=== PATIENT | female | born 1960 | race Caucasian/White ===

== ENCOUNTER 2020-05-02 08:51 | Day surgery (SDC) | payer MEDICARE ==
--- NOTE | 2020-05-02 09:38 | US ---
Ultrasound-guided liver biopsy DATE OF EXAM: 05/02/2020 CLINICAL HISTORY: Abnormal PET scan The patient presented to the radiology department with low oxygen saturation and difficulty breathing . The patient was taken to the emergency room for further evaluation. Patient deferred the procedure. IMPRESSION: 1. Discontinued ultrasound guided liver biopsy.
== END 2020-05-02 09:50 | disposition home or self-care (01) ==
LOC: RADPROMAIN 08:51
PROVIDERS: ATTEND Thoracic Surgery (Cardiothoracic Vascular Surgery)
DX: K76.89 Other specified diseases of liver (principal); Z53.8 Procedure and treatment not carried out for other reasons
CPT/HCPCS: 76705

== ENCOUNTER 2020-05-02 09:46 | Inpatient (IN) | payer MEDICARE ==
[2020-05-02] MEDS ORDERED: IPRATROPIUM 0.5 MG/2.5 ML NEBU INHALATION STA (10:21)
[2020-05-02] MEDS ORDERED: ALBUTEROL NEBULIZED 2.5 MG/3 ML INHALATION STA (10:21)
--- NOTE | 2020-05-02 10:25 | ED ---
General Adult HPI - General Chief complaint: Weakness Stated complaint: SOB Time Seen by Provider: 05/02/20 09:55 Source: patient, RN notes reviewed, old records reviewed Limitations: no limitations - History of Present Illness Initial comments: This is a 60-year-old female presents emergency department stating that she has a history of recently diagnosed lung cancer with metastatic disease to the liver. Patient states she also has COPD. Patient states she came in today bec ause she was post have a liver biopsy done when she got there she was oxygenating in the low 80s so they sent to the emergency department. Patient states she didn't really note that she was hypoxic today but she did feel weaker in general. Patient denies any lightheadedness dizziness or near syncopal episode. Patient denies any headache patient with any numbness weakness. Patient denies any chest pain or palpitations. Patient denies any abdominal pain. Patient denies any nausea vomiting diarrhea. Patient states she's had swelling in her legs is no worse today than it has been. - Related Data Home Medications Medication Instructions Recorded Confirmed Albuterol Inhaler [Ventolin Hfa 1 puff INHALATION RT-TID 04/25/20 05/02/20 Inhaler] Aspirin [Adult Low Dose Aspirin EC] 81 mg PO HS 04/25/20 05/02/20 Cholecalciferol [Vitamin D3 (25 1,000 unit PO DAILY 04/25/20 05/02/20 Mcg = 1000 Iu)] Omeprazole 20 mg PO BID 04/25/20 05/02/20 Pioglitazone [Actos] 30 mg PO DAILY 04/25/20 05/02/20 Potassium Gluconate 99 mg PO DAILY 04/25/20 05/02/20 Simvastatin [Zocor] 20 mg PO HS 04/25/20 05/02/20 Vitamin B Complex/Folic Acid 0.4 mg PO DAILY 04/25/20 05/02/20 [Vitamin B Complex Tablet] glipiZIDE XL [Glucotrol XL] 10 mg PO DAILY 04/25/20 05/02/20 metFORMIN HCL 1,000 mg PO BID 04/25/20 05/02/20 Albuterol Nebulized [Ventolin 2.5 mg INHALATION RT-QID 05/02/20 05/02/20 Nebulized] Enalapril [Vasotec] 10 mg PO BID 05/02/20 05/02/20 Fluticasone Nasal [place] [Flonase 1 spr EA NOSTRIL DAILY PRN 05/02/20 05/02/20 Nasal [place]] Meloxicam [Mobic] 15 mg PO DAILY 05/02/20 05/02/20 hydroCHLOROthiazide 25 mg PO DAILY 05/02/20 05/02/20 Allergies Allergy/AdvReac Type Severity Reaction Status Date / Time codeine Allergy Rash/Hives Verified 05/02/20 10:20 Iodine and Iodide Containing Allergy Rash/Hives Verified 05/02/20 10:20 Produc shellfish derived [Shellfish] Allergy Rash/Hives Verified 05/02/20 10:20 Review of Systems ROS Statement: Those systems with pertinent positive or pertinent negative responses have been documented in the HPI. ROS Other: All systems not noted in ROS Statement are negative. Past Medical History Past Medical History: Cancer, COPD, Diabetes Mellitus, GERD/Reflux, Hyperlipidemia, Hypertension Additional Past Medical History / Comment(s): back pain, Liver CA History of Any Multi-Drug Resistant Organisms: None Reported Past Surgical History: Adenoidectomy, Cholecystectomy, Joint Replacement, Orthopedic Surgery, Tonsillectomy Additional Past Surgical History / Comment(s): cyst removal in navel area Past Anesthesia/Blood Transfusion Reactions: Postoperative Nausea & Vomiting (PONV) Past Psychological History: No Psychological Hx Reported Smoking Status: Former smoker Past Alcohol Use History: Rare Past Drug Use History: None Reported - Past Family History Mother Brother(s) Additional Family Medical History / Comment(s): parkinson General Exam - General Exam Comments Initial Comments: GENERAL: Patient is well-developed and well-nourished. Patient is nontoxic and well-hydrated and is in mild distress. ENT: Neck is soft and supple. No significant lymphadenopathy is noted. Oropharynx is clear. Moist mucous membranes. Neck has full range of motion without eliciting any pain. EYES: The sclera were anicteric and conjunctiva were pink and moist. Extraocular movements were intact and pupils were equal round and reactive to light. Eyelids were unremarkable. PULMONARY: Patient has diminished lung sounds throughout. I removed the oxygen from the patient which she normally is not on and she desatted down to 80% on room air CARDIOVASCULAR: There is a regular rate and rhythm without any murmurs gallops or rubs. ABDOMEN: Soft and nontender with normal bowel sounds. SKIN: Skin is clear with no lesions or rashes and otherwise unremarkable. NEUROLOGIC: Patient is alert and oriented x3. Cranial nerves II through XII are grossly intact. Motor and sensory are also intact. Normal speech, volume and content. Symmetrical smile. MUSCULOSKELETAL: Normal extremities with adequate strength and full range of motion. Patient's 2+ edema bilaterally LYMPHATICS: No significant lymphadenopathy is noted PSYCHIATRIC: Normal psychiatric evaluation. Limitations: no limitations Course Vital Signs 05/02/20 05/02/20 05/02/20 09:51 09:56 10:52 Temperature 99.3 F Pulse Rate 85 86 Respiratory 18 18 Rate Blood Pressure 137/65 O2 Sat by Pulse 91 L Oximetry 05/02/20 05/02/20 11:11 12:21 Temperature Pulse Rate 88 92 Respiratory 18 Rate Blood Pressure 148/69 O2 Sat by Pulse 92 L Oximetry Medical Decision Making - Medical Decision Making EKG shows normal sinus rhythm at 84 bpm PA interval 262 QRS is 72 QT interval 360 QTC is 452. Patient's EKG shows no ST segment elevation or depression. Chest x-ray shows pulmonary edema Patient received a breathing treatment in the emergency department though she felt better she got up to ambulate her pulse ox dropped to the low 80s. Patient received more breathing treatments in the emergency department as well as steroids. [facility] spoke with [facility] hospitalist and admitted the patient for pulmonary edema and COPD I wrote admitting orders and continue the albuterol and Lasix on the floor - Lab Data Result diagrams: 05/02/20 10:24 05/02/20 10:24 Lab Results 05/02/20 05/02/20 05/02/20 Range/Units 10:24 10:24 10:24 WBC 9.9 (3.8-10.6) k/uL RBC 4.96 (3.80-5.40) m/uL Hgb 12.6 (11.4-16.0) gm/dL Hct 40.1 (34.0-46.0) % MCV 80.8 (80.0-100.0) fL MCH 25.5 (25.0-35.0) pg MCHC 31.5 (31.0-37.0) g/dL RDW 17.1 H (11.5-15.5) % Plt Count 176 (150-450) k/uL MPV 8.0 Neutrophils % 81 % Lymphocytes % 10 % Monocytes % 6 % Eosinophils % 1 % Basophils % 1 % Neutrophils # 8.0 H (1.3-7.7) k/uL Lymphocytes # 1.0 (1.0-4.8) k/uL Monocytes # 0.6 (0-1.0) k/uL Eosinophils # 0.1 (0-0.7) k/uL Basophils # 0.1 (0-0.2) k/uL Hypochromasia Marked Anisocytosis Slight Microcytosis Slight PT 10.3 (9.0-12.0) sec INR 1.0 (<1.2) APTT 23.7 (22.0-30.0) sec D-Dimer 0.60 H (<0.60) mg/L FEU Sodium 132 L (137-145) mmol/L Potassium 4.6 (3.5-5.1) mmol/L Chloride 92 L (98-107) mmol/L Carbon Dioxide 38 H (22-30) mmol/L Anion Gap 2 mmol/L BUN 13 (7-17) mg/dL Creatinine 0.45 L (0.52-1.04) mg/dL Est GFR (CKD-EPI)AfAm >90 (>60 ml/min/1.73 sqM) Est GFR (CKD-EPI)NonAf >90 (>60 ml/min/1.73 sqM) Glucose 120 H (74-99) mg/dL Plasma Lactic Acid Los (0.7-2.0) mmol/L Calcium 8.8 (8.4-10.2) mg/dL Magnesium 1.9 (1.6-2.3) mg/dL Total Bilirubin 1.1 (0.2-1.3) mg/dL AST 77 H (14-36) U/L ALT 61 H (4-34) U/L Alkaline Phosphatase 181 H (38-126) U/L Troponin I (0.000-0.034) ng/mL NT-Pro-B Natriuret Pep pg/mL Total Protein 5.7 L (6.3-8.2) g/dL Albumin 3.3 L (3.5-5.0) g/dL Urine Color Urine Appearance (Clear) Urine pH (5.0-8.0) Ur Specific [place] (1.001-1.035) Urine Protein (Negative) Urine Glucose (UA) (Negative) Urine Ketones (Negative) Urine Blood (Negative) Urine Nitrite (Negative) Urine Bilirubin (Negative) Urine Urobilinogen (<2.0) mg/dL Ur Leukocyte Esterase (Negative) Urine RBC (0-5) /hpf Urine WBC (0-5) /hpf Ur Squamous Epith Cells (0-4) /hpf Urine Bacteria (None) /hpf Urine Mucus (None) /hpf Coronavirus (PCR) (Not Detectd) 05/02/20 05/02/20 05/02/20 Range/Units 10:24 10:24 10:24 WBC (3.8-10.6) k/uL RBC (3.80-5.40) m/uL Hgb (11.4-16.0) gm/dL Hct (34.0-46.0) % MCV (80.0-100.0) fL MCH (25.0-35.0) pg MCHC (31.0-37.0) g/dL RDW (11.5-15.5) % Plt Count (150-450) k/uL MPV Neutrophils % % Lymphocytes % % Monocytes % % Eosinophils % % Basophils % % Neutrophils # (1.3-7.7) k/uL Lymphocytes # (1.0-4.8) k/uL Monocytes # (0-1.0) k/uL Eosinophils # (0-0.7) k/uL Basophils # (0-0.2) k/uL Hypochromasia Anisocytosis Microcytosis PT (9.0-12.0) sec INR (<1.2) APTT (22.0-30.0) sec D-Dimer (<0.60) mg/L FEU Sodium (137-145) mmol/L Potassium (3.5-5.1) mmol/L Chloride (98-107) mmol/L Carbon Dioxide (22-30) mmol/L Anion Gap mmol/L BUN (7-17) mg/dL Creatinine (0.52-1.04) mg/dL Est GFR (CKD-EPI)AfAm (>60 ml/min/1.73 sqM) Est GFR (CKD-EPI)NonAf (>60 ml/min/1.73 sqM) Glucose (74-99) mg/dL Plasma Lactic Acid Los 0.9 (0.7-2.0) mmol/L Calcium (8.4-10.2) mg/dL Magnesium (1.6-2.3) mg/dL Total Bilirubin (0.2-1.3) mg/dL AST (14-36) U/L ALT (4-34) U/L Alkaline Phosphatase (38-126) U/L Troponin I <0.012 (0.000-0.034) ng/mL NT-Pro-B Natriuret Pep 244 pg/mL Total Protein (6.3-8.2) g/dL Albumin (3.5-5.0) g/dL Urine Color Urine Appearance (Clear) Urine pH (5.0-8.0) Ur Specific [place] (1.001-1.035) Urine Protein (Negative) Urine Glucose (UA) (Negative) Urine Ketones (Negative) Urine Blood (Negative) Urine Nitrite (Negative) Urine Bilirubin (Negative) Urine Urobilinogen (<2.0) mg/dL Ur Leukocyte Esterase (Negative) Urine RBC (0-5) /hpf Urine WBC (0-5) /hpf Ur Squamous Epith Cells (0-4) /hpf Urine Bacteria (None) /hpf Urine Mucus (None) /hpf Coronavirus (PCR) (Not Detectd) 05/02/20 05/02/20 Range/Units 10:51 12:06 WBC (3.8-10.6) k/uL RBC (3.80-5.40) m/uL Hgb (11.4-16.0) gm/dL Hct (34.0-46.0) % MCV (80.0-100.0) fL MCH (25.0-35.0) pg MCHC (31.0-37.0) g/dL RDW (11.5-15.5) % Plt Count (150-450) k/uL MPV Neutrophils % % Lymphocytes % % Monocytes % % Eosinophils % % Basophils % % Neutrophils # (1.3-7.7) k/uL Lymphocytes # (1.0-4.8) k/uL Monocytes # (0-1.0) k/uL Eosinophils # (0-0.7) k/uL Basophils # (0-0.2) k/uL Hypochromasia Anisocytosis Microcytosis PT (9.0-12.0) sec INR (<1.2) APTT (22.0-30.0) sec D-Dimer (<0.60) mg/L FEU Sodium (137-145) mmol/L Potassium (3.5-5.1) mmol/L Chloride (98-107) mmol/L Carbon Dioxide (22-30) mmol/L Anion Gap mmol/L BUN (7-17) mg/dL Creatinine (0.52-1.04) mg/dL Est GFR (CKD-EPI)AfAm (>60 ml/min/1.73 sqM) Est GFR (CKD-EPI)NonAf (>60 ml/min/1.73 sqM) Glucose (74-99) mg/dL Plasma Lactic Acid Los (0.7-2.0) mmol/L Calcium (8.4-10.2) mg/dL Magnesium (1.6-2.3) mg/dL Total Bilirubin (0.2-1.3) mg/dL AST (14-36) U/L ALT (4-34) U/L Alkaline Phosphatase (38-126) U/L Troponin I (0.000-0.034) ng/mL NT-Pro-B Natriuret Pep pg/mL Total Protein (6.3-8.2) g/dL Albumin (3.5-5.0) g/dL Urine Color Yellow Urine Appearance Cloudy H (Clear) Urine pH 6.0 (5.0-8.0) Ur Specific [place] 1.021 (1.001-1.035) Urine Protein Trace H (Negative) Urine Glucose (UA) Negative (Negative) Urine Ketones Negative (Negative) Urine Blood Negative (Negative) Urine Nitrite Negative (Negative) Urine Bilirubin Negative (Negative) Urine Urobilinogen 3.0 (<2.0) mg/dL Ur Leukocyte Esterase Trace H (Negative) Urine RBC 1 (0-5) /hpf Urine WBC 1 (0-5) /hpf Ur Squamous Epith Cells 4 (0-4) /hpf Urine Bacteria Rare H (None) /hpf Urine Mucus Rare H (None) /hpf Coronavirus (PCR) Not Detected (Not Detectd) Critical Care Time Critical Care Time: Yes Total Critical Care Time: 35 Disposition Clinical Impression: Pulmonary edema, COPD exacerbation Disposition: ADMITTED IP TO THIS HOSP Referrals: Rebecca Birmingham MD [Primary Care Provider] - 1-2 days Time of Disposition: 13:48
[2020-05-02 10:52] LABS: Anisocytosis Slight; Basophils # (A) 0.1 k/uL (0-0.2); Basophils % (A) 1 %; Eosinophils # (A) 0.1 k/uL (0-0.7); Eosinophils % (A) 1 %; HCT 40.1 % (34.0-46.0); HGB 12.6 gm/dL (11.4-16.0); Hypochromasia Marked; Lymphocytes % (A) 10 %; MCH 25.5 pg (25.0-35.0); MCHC 31.5 g/dL (31.0-37.0); MCV 80.8 fL (80.0-100.0); Microcytosis Slight; Monocytes # (A) 0.6 k/uL (0-1.0); Monocytes % (A) 6 %; Neutrophils % (A) 81 %; Platelet Count 176 k/uL (150-450); RBC 4.96 m/uL (3.80-5.40); RDW 17.1 % (11.5-15.5); WBC 9.9 k/uL (3.8-10.6)
[2020-05-02 11:07] LABS: Chloride 92 mmol/L (98-107)
[2020-05-02 11:10] LABS: ALT 61 U/L (4-34); AST 77 U/L (14-36); African American GFR (CKD) >90 (>60 ml/min/1.73 sqM); Albumin 3.3 g/dL (3.5-5.0); Alkaline Phosphatase 181 U/L (38-126); Blood Urea Nitrogen 13 mg/dL (7-17); Calcium 8.8 mg/dL (8.4-10.2); Glucose 120 mg/dL (74-99); Magnesium 1.9 mg/dL (1.6-2.3); Non-African American GFR(CKD) >90 (>60 ml/min/1.73 sqM); Potassium 4.6 mmol/L (3.5-5.1); Sodium 132 mmol/L (137-145); Total Bilirubin 1.1 mg/dL (0.2-1.3); Total Protein 5.7 g/dL (6.3-8.2)
[2020-05-02 11:14] LABS: Partial Thromboplastin Time 23.7 sec (22.0-30.0); Prothrombin Time 10.3 sec (9.0-12.0)
[2020-05-02 11:16] LABS: Anion Gap 2 mmol/L
[2020-05-02 11:23] LABS: Carbon Dioxide 38 mmol/L (22-30)
--- NOTE | 2020-05-02 11:32 | XR ---
EXAMINATION TYPE: XR chest 2V DATE OF EXAM: 05/02/2020 COMPARISON: 07/09/[address] 04/22/2020 HISTORY: 60 year-old female shortness of breath, difficulty breathing, stage IV lung cancer. TECHNIQUE: PA and lateral views FINDINGS: Heart borderline enlarged. Diffuse interstitial/vascular prominence along with trace effusions and mi ld patchy lower lung densities. 3.3 cm mass left midlung. IMPRESSION: 1. Borderline cardiomegaly with interstitial/vascular prominence and trace pleural effusions. Correla te for mild CHF. 2. Known 3.3 cm mass in the left midlung correlating to the abnormality on recent outside PET/CT.
[2020-05-02 11:37] LABS: D-Dimer 0.6 mg/L FEU (<0.60)
[2020-05-02 12:40] LABS: Appearance,Urine Cloudy (Clear); Bacteria,Urine Rare /hpf; Bilirubin,Urine Negative (Negative); Blood,Urine Negative (Negative); Color,Urine Yellow; Glucose,Urine (UA) Negative (Negative); Ketones,Urine Negative (Negative); Leukocyte Esterase,Urine Trace (Negative); Mucus,Urine Rare /hpf; Nitrite,Urine Negative (Negative); Protein,Urine Trace (Negative); RBC,Urine 1 /hpf (0-5); Specific Gravity,Urine 1.021 (1.001-1.035); Squamous Epithelial Cell,Urine 4 /hpf (0-4); WBC,Urine 1 /hpf (0-5)
[2020-05-02] MEDS ORDERED: methylPREDNISolone SOD SUCCI 125 MG/2 ML VIAL IV STA (13:05)
[2020-05-02] MEDS ORDERED: FUROSEMIDE 10 MG/ML 2 ML VIAL IV ONE (13:49)
[2020-05-02] MEDS ORDERED: methylPREDNISolone SOD SUCCI 40 MG/ML 1 ML VIAL IV SCH (16:00)
[2020-05-02] MEDS ORDERED: FUROSEMIDE 10 MG/ML 2 ML VIAL IV SCH (16:00)
--- NOTE | 2020-05-02 16:07 | P.HPIM ---
History of Present Illness This is a pleasant 60-year-old female came in because she was found to be hypoxic while getting a biopsy of the liver. Patient was wheezing on admission improved with steroids and inhalational treatments patient is diminished on exa mination the patient. Patient was having bilateral pedal edema is as per the patient pedal edema started yesterday denied any orthopnea or paroxysmal nocturnal dyspnea. Patient BNP is only 200 I'm unable to clearly appreciate the JVD . Patient is bit hyponatremic as well. Patient was recently diagnosed with lung cancer but this was not biopsy-proven yet. Patient also has metastatic disease to the liver. Patient denied any significant cough or doesn't have any fevers or chills. Chest x-ray showed interstitial vascular prominence. Review of Systems REVIEW OF SYSTEMS: CONSTITUTIONAL: No fever, no malaise, no fatigue. HEENT: No recent visual problems or hearing problems. Denied any sore throat. CARDIOVASCULAR: No chest pain, orthopnea, PND, no palpitations, no syncope. PULMONARY: no hemoptysis. GASTROINTESTINAL: No diarrhea, no nausea, no vomiting, no abdominal pain. NEUROLOGICAL: No headaches, no weakness, no numbness. HEMATOLOGICAL: Denies any bleeding or petechiae. GENITOURINARY: Denies any burning micturition, frequency, or urgency. MUSCULOSKELETAL/RHEUMATOLOGICAL: Denies any joint pain, swelling, or any muscle pain. ENDOCRINE: Denies any polyuria or polydipsia. The rest of the 14-point review of systems is negative. Past Medical History Past Medical History: Cancer, COPD, Diabetes Mellitus, GERD/Reflux, Hyperlipidemia, Hypertension Additional Past Medical History / Comment(s): back pain, Liver CA History of Any Multi-Drug Resistant Organisms: None Reported Past Surgical History: Adenoidectomy, Cholecystectomy, Joint Replacement, Orthopedic Surgery, Tonsillectomy Additional Past Surgical History / Comment(s): cyst removal in navel area Past Anesthesia/Blood Transfusion Reactions: Postoperative Nausea & Vomiting (PONV) Past Psychological History: No Psychological Hx Reported Smoking Status: Former smoker Past Alcohol Use History: Rare Past Drug Use History: None Reported - Past Family History Mother Brother(s) Additional Family Medical History / Comment(s): parkinson Medications and Allergies Home Medications Medication Instructions Recorded Confirmed Type Albuterol Inhaler [Ventolin Hfa 1 puff INHALATION RT-TID 04/25/20 05/02/20 History Inhaler] Aspirin [Adult Low Dose Aspirin EC] 81 mg PO HS 04/25/20 05/02/20 History Cholecalciferol [Vitamin D3 (25 1,000 unit PO DAILY 04/25/20 05/02/20 History Mcg = 1000 Iu)] Omeprazole 20 mg PO BID 04/25/20 05/02/20 History Pioglitazone [Actos] 30 mg PO DAILY 04/25/20 05/02/20 History Potassium Gluconate 99 mg PO DAILY 04/25/20 05/02/20 History Simvastatin [Zocor] 20 mg PO HS 04/25/20 05/02/20 History Vitamin B Complex/Folic Acid 0.4 mg PO DAILY 04/25/20 05/02/20 History [Vitamin B Complex Tablet] glipiZIDE XL [Glucotrol XL] 10 mg PO DAILY 04/25/20 05/02/20 History metFORMIN HCL 1,000 mg PO BID 04/25/20 05/02/20 History Albuterol Nebulized [Ventolin 2.5 mg INHALATION RT-QID 05/02/20 05/02/20 History Nebulized] Enalapril [Vasotec] 10 mg PO BID 05/02/20 05/02/20 History Fluticasone Nasal [place] [Flonase 1 spr EA NOSTRIL DAILY PRN 05/02/20 05/02/20 History Nasal [place]] Meloxicam [Mobic] 15 mg PO DAILY 05/02/20 05/02/20 History hydroCHLOROthiazide 25 mg PO DAILY 05/02/20 05/02/20 History Allergies Allergy/AdvReac Type Severity Reaction Status Date / Time codeine Allergy Rash/Hives Verified 05/02/20 10:20 Iodine and Iodide Containing Allergy Rash/Hives Verified 05/02/20 10:20 Produc shellfish derived [Shellfish] Allergy Rash/Hives Verified 05/02/20 10:20 Physical Exam Vitals: Vital Signs Temp Pulse Resp BP Pulse Ox 05/02/20 12:21 92 18 148/69 92 L 05/02/20 11:11 88 05/02/20 10:52 86 05/02/20 09:56 18 05/02/20 09:51 99.3 F 85 18 137/65 91 L Intake and Output 05/02/20 05/02/20 05/02/20 06:59 14:59 22:59 Other: Weight 149.685 kg PHYSICAL EXAMINATION: GENERAL: The patient is alert and oriented x3, not in any acute distress. Obese HEENT: Pupils are round and equally reacting to light. EOMI. No scleral icterus. No conjunctival pallor. Normocephalic, atraumatic. No pharyngeal erythema. No thyromegaly. CARDIOVASCULAR: S1 and S2 present. No murmurs, rubs, or gallops. PULMONARY: Chest is clear to auscultation, no wheezing or crackles. Minimally diminished air entry into bilateral lung [place]. ABDOMEN: Soft, nontender, nondistended, normoactive bowel sounds. No palpable organomegaly. MUSCULOSKELETAL: No joint swelling or deformity. EXTREMITIES: No cyanosis, clubbing, or pedal edema. NEUROLOGICAL: Gross neurological examination did not reveal any focal deficits. SKIN: No rashes. Results CBC & Chem 7: 05/02/20 10:24 05/02/20 10:24 Labs: Abnormal Lab Results - Last 24 Hours (Table) 05/02/20 05/02/20 05/02/20 Range/Units 10:24 10:24 10:24 RDW 17.1 H (11.5-15.5) % Neutrophils # 8.0 H (1.3-7.7) k/uL D-Dimer 0.60 H (<0.60) mg/L FEU Sodium 132 L (137-145) mmol/L Chloride 92 L (98-107) mmol/L Carbon Dioxide 38 H (22-30) mmol/L Creatinine 0.45 L (0.52-1.04) mg/dL Glucose 120 H (74-99) mg/dL AST 77 H (14-36) U/L ALT 61 H (4-34) U/L Alkaline Phosphatase 181 H (38-126) U/L Total Protein 5.7 L (6.3-8.2) g/dL Albumin 3.3 L (3.5-5.0) g/dL Urine Appearance (Clear) Urine Protein (Negative) Ur Leukocyte Esterase (Negative) Urine Bacteria (None) /hpf Urine Mucus (None) /hpf 05/02/20 Range/Units 12:06 RDW (11.5-15.5) % Neutrophils # (1.3-7.7) k/uL D-Dimer (<0.60) mg/L FEU Sodium (137-145) mmol/L Chloride (98-107) mmol/L Carbon Dioxide (22-30) mmol/L Creatinine (0.52-1.04) mg/dL Glucose (74-99) mg/dL AST (14-36) U/L ALT (4-34) U/L Alkaline Phosphatase (38-126) U/L Total Protein (6.3-8.2) g/dL Albumin (3.5-5.0) g/dL Urine Appearance Cloudy H (Clear) Urine Protein Trace H (Negative) Ur Leukocyte Esterase Trace H (Negative) Urine Bacteria Rare H (None) /hpf Urine Mucus Rare H (None) /hpf Assessment and Plan Plan: Shortness of breath: Mostly COPD exacerbation and shortness of breath significantly improved patient will be switched to oral steroids patient is diabetic I am expecting her blood sugars to go up because of the IV steroids she is receiving at this time. Continue with inhalational treatments. -Bilateral pedal edema with the possible pulmonary congestion on the chest x-ray I'll obtain an echocardiogram . Because of the pedal edema and continue with IV Lasix for now. -Hyponatremia: Hypervolemic hyponatremia with a possible competent of SIADH from a lung cancer -Lung cancer will need biopsy -Hypertension -hyperlipidemia -Nicotine abuse: Counseling was provided quit smoking 4 days ago and used to smoke 3 packs per day. Type 2 diabetes mellitus: Blood sugars are expected to go because of systemic steroids DVT prophylaxis with Lovenox
[2020-05-02] MEDS ORDERED: methylPREDNISolone SOD SUCCI 125 MG/2 ML VIAL IV SCH (18:00)
[2020-05-02 19:08] LABS: Glucose,Whole Blood 338 mg/dL (75-99)
[2020-05-02] MEDS: INSULIN ASPART (NovoLOG) 100 UNIT/ML VIAL SQ SCH ×2 (19:10→21:28)
[2020-05-02] MEDS ORDERED: FUROSEMIDE 10 MG/ML 4 ML VIAL IV SCH (21:00)
[2020-05-02] MEDS ORDERED: ASPIRIN 81 MG PO SCH (21:00)
[2020-05-02] MEDS: metFORMIN 500 MG TAB PO SCH (21:07)
[2020-05-02] MEDS: ATORVASTATIN 10 MG TAB PO SCH (21:07)
[2020-05-03 06:54] LABS: Anisocytosis Slight; HCT 40.5 % (34.0-46.0); HGB 12.7 gm/dL (11.4-16.0); Hypochromasia Marked; MCH 25.4 pg (25.0-35.0); MCHC 31.3 g/dL (31.0-37.0); MCV 81.1 fL (80.0-100.0); Mean Platelet Volume 7.7; Platelet Count 189 k/uL (150-450); RBC 4.99 m/uL (3.80-5.40); RDW 16.9 % (11.5-15.5); WBC 11.6 k/uL (3.8-10.6)
[2020-05-03 07:01] LABS: Glucose,Whole Blood 91 mg/dL (75-99)
[2020-05-03] MEDS: IPRATROPIUM-ALBUTEROL 3 ML NEB INHALATION PRN ×2 (07:50→16:58)
[2020-05-03] MEDS: metFORMIN 500 MG TAB PO SCH ×2 (08:05→20:43)
[2020-05-03] MEDS: PIOGLITAZONE 30 MG TAB PO SCH (08:05)
[2020-05-03] MEDS: glipiZIDE 5 MG TAB PO SCH ×2 (08:05→20:53)
[2020-05-03] MEDS: FUROSEMIDE 10 MG/ML 4 ML VIAL IV SCH ×2 (08:05→16:13)
[2020-05-03] MEDS: INSULIN ASPART (NovoLOG) 100 UNIT/ML VIAL SQ SCH ×4 (08:06→20:43)
[2020-05-03] MEDS: lisinopriL 20 MG TAB PO SCH (08:06)
[2020-05-03] MEDS: PANTOPRAZOLE 40 MG TABLET PO SCH (08:06)
[2020-05-03] MEDS: MELOXICAM 7.5 MG TAB PO SCH (08:07)
[2020-05-03] MEDS ORDERED: predniSONE 20 MG TAB PO SCH (09:00)
[2020-05-03] MEDS ORDERED: ENOXAPARIN 40 MG/0.4 ML SYRINGE SQ SCH (09:00)
[2020-05-03 09:58] LABS: African American GFR (CKD) 120.2 (60.0-200.0); Anion Gap 4.5 mmol/L (4.00-12.00); Calcium 9.3 mg/dL (8.7-10.3); Carbon Dioxide 39.5 mmol/L (21.6-31.8); Non-African American GFR(CKD) 103.7 (60.0-200.0); Potassium 3.9 mmol/L (3.5-5.5)
--- NOTE | 2020-05-03 10:15 | P.PN ---
Subjective 60-year-old female came in because she was found to be hypoxic while getting a biopsy of the liver. Patient was wheezing on admission improved with steroids and inhalational treatments patient is diminished on examination the patient. Patient was having bilateral pedal edema is as per the patient pedal edema started yesterday denied any orthopnea or paroxysmal nocturnal dyspnea. Patient BNP is only 200 I'm unable to clearly appreciate the JVD . Patient is bit hyponatremic as well. Patient was recently diagnosed with lung cancer but this was not biopsy-proven yet. Patient also has metastatic disease to the liver. Patient denied any significant cough or doesn't have any fevers or chills. Chest x-ray showed interstitial vascular prominence. 05/03 2020 Patient is feeling much better today. Patient has significant urine output. Hy ponatremia improved. Patient regarding on IV Lasix .echocardiac exam is pending. Constitutional: Denied any fatigue denied any fever. Cardio vascular: denied any chest pain, palpitations Gastrointestinal denied any nausea vomiting Pulmonary: Shortness of breath improved Neurologic denied any new focal deficits All inpatient medications were reviewed and appropriate changes in these medications as dictated in the interval history and assessment and plan. Objective - Vital Signs Vital signs: Vital Signs Temp 97.8 F 05/03/20 05:00 Pulse 72 05/03/20 08:02 Resp 20 05/03/20 05:00 BP 152/81 05/03/20 05:00 Pulse Ox 90 L 05/03/20 05:00 Intake & Output 05/02/20 05/03/20 05/03/20 18:59 06:59 18:59 Intake Total 710 Balance 710 Weight 149.685 kg Intake: Oral 710 Other: # Voids 3 - Exam PHYSICAL EXAMINATION: GENERAL: The patient is alert and oriented x3, not in any acute distress. Obese HEENT: Pupils are round and equally reacting to light. EOMI. No scleral icterus. No conjunctival pallor. Normocephalic, atraumatic. No pharyngeal erythema. No thyromegaly. CARDIOVASCULAR: S1 and S2 present. No murmurs, rubs, or gallops. PULMONARY: Chest is clear to auscultation, no wheezing or crackles. Minimally diminished air entry into bilateral lung leonard. ABDOMEN: Soft, nontender, nondistended, normoactive bowel sounds. No palpable organomegaly. MUSCULOSKELETAL: No joint swelling or deformity. EXTREMITIES: No cyanosis, clubbing, does have significant bilateral pedal edema which improved compared to yesterday NEUROLOGICAL: Gross neurological examination did not reveal any focal deficits. SKIN: No rashes. - Labs CBC & Chem 7: 05/03/20 06:37 05/03/20 06:37 Labs: Abnormal Lab Results - Last 24 Hours (Table) 05/02/20 05/02/20 05/02/20 Range/Units 10:24 10:24 10:24 WBC (3.8-10.6) k/uL RDW 17.1 H (11.5-15.5) % Neutrophils # 8.0 H (1.3-7.7) k/uL D-Dimer 0.60 H (<0.60) mg/L FEU Sodium 132 L (137-145) mmol/L Chloride 92 L (98-107) mmol/L Carbon Dioxide 38 H (22-30) mmol/L Creatinine 0.45 L (0.52-1.04) mg/dL Glucose 120 H (74-99) mg/dL POC Glucose (mg/dL) (75-99) mg/dL AST 77 H (14-36) U/L ALT 61 H (4-34) U/L Alkaline Phosphatase 181 H (38-126) U/L Total Protein 5.7 L (6.3-8.2) g/dL Albumin 3.3 L (3.5-5.0) g/dL Urine Appearance (Clear) Urine Protein (Negative) Ur Leukocyte Esterase (Negative) Urine Bacteria (None) /hpf Urine Mucus (None) /hpf 05/02/20 05/02/20 05/03/20 Range/Units 12:06 19:06 06:37 WBC 11.6 H (3.8-10.6) k/uL RDW 16.9 H (11.5-15.5) % Neutrophils # (1.3-7.7) k/uL D-Dimer (<0.60) mg/L FEU Sodium (137-145) mmol/L Chloride (98-107) mmol/L Carbon Dioxide (22-30) mmol/L Creatinine (0.52-1.04) mg/dL Glucose (74-99) mg/dL POC Glucose (mg/dL) 338 H (75-99) mg/dL AST (14-36) U/L ALT (4-34) U/L Alkaline Phosphatase (38-126) U/L Total Protein (6.3-8.2) g/dL Albumin (3.5-5.0) g/dL Urine Appearance Cloudy H (Clear) Urine Protein Trace H (Negative) Ur Leukocyte Esterase Trace H (Negative) Urine Bacteria Rare H (None) /hpf Urine Mucus Rare H (None) /hpf 05/03/20 Range/Units 06:37 WBC (3.8-10.6) k/uL RDW (11.5-15.5) % Neutrophils # (1.3-7.7) k/uL D-Dimer (<0.60) mg/L FEU Sodium (137-145) mmol/L Chloride 94 L (98-107) mmol/L Carbon Dioxide 39.5 H (22-30) mmol/L Creatinine 0.5 L (0.52-1.04) mg/dL Glucose (74-99) mg/dL POC Glucose (mg/dL) (75-99) mg/dL AST (14-36) U/L ALT (4-34) U/L Alkaline Phosphatase (38-126) U/L Total Protein (6.3-8.2) g/dL Albumin (3.5-5.0) g/dL Urine Appearance (Clear) Urine Protein (Negative) Ur Leukocyte Esterase (Negative) Urine Bacteria (None) /hpf Urine Mucus (None) /hpf Assessment and Plan Plan: Shortness of breath: Mostly COPD exacerbation and shortness of breath significantly improved and is on oral steroids , blood sugars are highly elevated due to systemic steroids will cut down the steroids to 20 g today. -Bilateral pedal edema with the possible pulmonary congestion on the chest x-ray I'll obtain an echocardiogram . Because of the pedal edema and continue with IV Lasix for now. Patient may have heart failure echocardiogram is pending -Hyponatremia: Hypervolemic hyponatremia , improved with IV Lasix -Lung cancer will need biopsy -Hypertension -hyperlipidemia -Nicotine abuse: Counseling was provided quit smoking 4 days ago and used to smoke 3 packs per day. Type 2 diabetes mellitus: Blood sugars are expected to go because of systemic steroids DVT prophylaxis with Lovenox
[2020-05-03 12:06] LABS: Glucose,Whole Blood 204 mg/dL (75-99)
--- NOTE | 2020-05-03 14:38 | ECHOF ---
Referral Reason:CHF MEASUREMENTS -------- HEIGHT: 167.6 cm WEIGHT: 149.7 kg BP: 152/81 RVIDd: 3.5 cm (< 3.3) IVSd: 1.4 cm (0.6 - 1.1) LVIDd: 3.7 cm (3.9 - 5.3) LVPWd: 1.5 cm (0.6 - 1.1) IVSs: 2.2 cm LVIDs: 2.8 cm LVPWs: 2.1 cm LA Diam: 4.3 cm (2.7 - 3.8) Ao Diam: 3.2 cm (2.0 - 3.7) AV Cusp: 2.3 cm (1.5 - 2.6) MV EXCURSION: 18.351 mm (> 18.000) MV EF SLOPE: 86 mm/s (70 - 150) EPSS: 0.4 cm MV E Eleazar: 1.22 m/s MV DecT: 241 ms MV A Eleazar: 1.15 m/s MV E/A Ratio: 1.07 RAP: 15.00 mmHg RVSP: 57.73 mmHg FINDINGS -------- Sinus rhythm. This was a technically adequate study. The left ventricular size is normal. There is moderate concentric left ventricular hypertrophy. O verall left ventricular systolic function is normal with, an EF between 60 - 65 %. The right ventricle is mildly enlarged. The left atrium is moderately dilated. The right atrium is normal in size. Interatrial and interventricular septum intact. Aortic valve is trileaflet and is mildly thickened. Mild mitral annular calcification present. Mild tricuspid regurgitation present. There is severe pulmonary hypertension. The right ventricul ar systolic pressure, as measured by Doppler, is 57.73mmHg. The pulmonic valve was not well visualized. The aortic root size is normal. The inferior vena cava is dilated with no significant inspiratory collapse which is consistent estima karen right atrial pressure of >15 mmHg. There is no pericardial effusion. CONCLUSIONS -------- 1. The left ventricular size is normal. 2. There is moderate concentric left ventricular hypertrophy. 3. Overall left ventricular systolic function is normal with, an EF between 60 - 65 %. 4. The right ventricle is mildly enlarged. 5. The left atrium is moderately dilated. 6. Aortic valve is trileaflet and is mildly thickened. 7. Mild mitral annular calcification present. 8. Mild tricuspid regurgitation present. 9. There is severe pulmonary hypertension. 10. The right ventricular systolic pressure, as measured by Doppler, is 57.73mmHg. 11. The inferior vena cava is dilated with no significant inspiratory collapse which is consistent es timated right atrial pressure of >15 mmHg. 12. There is no pericardial effusion. INTERNATIONAL STUDENT ADVISOR: María Churchill RDCS
[2020-05-03 17:13] LABS: Glucose,Whole Blood 190 mg/dL (75-99)
[2020-05-03 19:57] LABS: Glucose,Whole Blood 195 mg/dL (75-99)
[2020-05-03] MEDS: ATORVASTATIN 10 MG TAB PO SCH (20:43)
[2020-05-04 06:42] LABS: Glucose,Whole Blood 78 mg/dL (75-99)
[2020-05-04] MEDS: INSULIN ASPART (NovoLOG) 100 UNIT/ML VIAL SQ SCH ×4 (07:04→21:13)
[2020-05-04] MEDS: PIOGLITAZONE 30 MG TAB PO SCH (07:55)
[2020-05-04] MEDS: predniSONE 20 MG TAB PO SCH (07:55)
[2020-05-04] MEDS: PANTOPRAZOLE 40 MG TABLET PO SCH (07:55)
[2020-05-04] MEDS: metFORMIN 500 MG TAB PO SCH ×2 (07:55→21:12)
[2020-05-04] MEDS: FUROSEMIDE 10 MG/ML 4 ML VIAL IV SCH (07:55)
[2020-05-04] MEDS: lisinopriL 20 MG TAB PO SCH (07:55)
[2020-05-04] MEDS: glipiZIDE 5 MG TAB PO SCH (07:55)
[2020-05-04] MEDS: MELOXICAM 7.5 MG TAB PO SCH (07:56)
[2020-05-04] MEDS: IPRATROPIUM-ALBUTEROL 3 ML NEB INHALATION PRN (08:10)
[2020-05-04 10:08] LABS: African American GFR (CKD) 113.2 (60.0-200.0); BUN/Creat Ratio 23.33 Ratio (12.00-20.00); Calcium 9.6 mg/dL (8.7-10.3); Chloride 92 mmol/L (96-109); Glucose 61 mg/dL (70-110); Non-African American GFR(CKD) 97.7 (60.0-200.0); Potassium 3.8 mmol/L (3.5-5.5); Sodium 141 mmol/L (135-145)
--- NOTE | 2020-05-04 10:46 | P.PN ---
Subjective 60-year-old female came in because she was found to be hypoxic while getting a biopsy of the liver. Patient was wheezing on admission improved with steroids and inhalational treatments patient is diminished on examination the patient. Patient was having bilateral pedal edema is as per the patient pedal edema started yesterday denied any orthopnea or paroxysmal nocturnal dyspnea. Patient BNP is only 200 I'm unable to clearly appreciate the JVD . Patient is bit hyponatremic as well. Patient was recently diagnosed with lung cancer but this was not biopsy-proven yet. Patient also has metastatic disease to the liver. Patient denied any significant cough or doesn't have any fevers or chills. Chest x-ray showed interstitial vascular prominence. 05/03 2020 Patient is feeling much better today. Patient has significant urine output. Hy ponatremia improved. Patient regarding on IV Lasix .echocardiac exam is pending. 05/03/2020 Patient is fairly saturating well on room air. Patient has an echo cardiac exam showed normal ejection fraction but may have some right-sided heart failure patient has moderate to severe pulmonary hypertension with RVSP of around 57. And appears to have contraction alkalosis. Patient will remain on Lasix today possibility of switching it to oral tomorrow Constitutional: Denied any fatigue denied any fever. Cardio vascular: denied any chest pain, palpitations Gastrointestinal denied any nausea vomiting Pulmonary: Shortness of breath improved Neurologic denied any new focal deficits All inpatient medications were reviewed and appropriate changes in these medications as dictated in the interval history and assessment and plan. Objective - Vital Signs Vital signs: Vital Signs Temp 98.1 F 05/04/20 05:00 Pulse 76 05/04/20 08:26 Resp 20 05/04/20 05:00 BP 128/70 05/04/20 05:00 Pulse Ox 93 L 05/04/20 05:00 Intake & Output 05/03/20 05/04/20 05/04/20 18:59 06:59 18:59 Intake Total 0 Balance 1770 Intake: Oral 0 Other: # Voids 4 3 - Exam PHYSICAL EXAMINATION: GENERAL: The patient is alert and oriented x3, not in any acute distress. Obese HEENT: Pupils are round and equally reacting to light. EOMI. No scleral icterus. No conjunctival pallor. Normocephalic, atraumatic. No pharyngeal erythema. No thyromegaly. CARDIOVASCULAR: S1 and S2 present. No murmurs, rubs, or gallops. PULMONARY: Chest is clear to auscultation, no wheezing or crackles. Minimally diminished air entry into bilateral lung leonard. ABDOMEN: Soft, nontender, nondistended, normoactive bowel sounds. No palpable organomegaly. MUSCULOSKELETAL: No joint swelling or deformity. EXTREMITIES: No cyanosis, clubbing, does have significant bilateral pedal edema which improved compared to yesterday NEUROLOGICAL: Gross neurological examination did not reveal any focal deficits. SKIN: No rashes. - Labs CBC & Chem 7: 05/03/20 06:37 05/04/20 04:59 Labs: Abnormal Lab Results - Last 24 Hours (Table) 05/03/20 05/03/20 05/03/20 Range/Units 12:04 17:12 19:56 Chloride (96-109) mmol/L Carbon Dioxide (21.6-31.8) mmol/L BUN/Creatinine Ratio (12.00-20.00) Ratio Glucose (70-110) mg/dL POC Glucose (mg/dL) 204 H 190 H 195 H (75-99) mg/dL 05/04/20 Range/Units 04:59 Chloride 92 L (96-109) mmol/L Carbon Dioxide >40.0 H* (21.6-31.8) mmol/L BUN/Creatinine Ratio 23.33 H (12.00-20.00) Ratio Glucose 61 L (70-110) mg/dL POC Glucose (mg/dL) (75-99) mg/dL Microbiology - Last 24 Hours (Table) 05/02/20 10:24 Blood Culture - Preliminary Blood No Growth after 24 hours Assessment and Plan Plan: Shortness of breath: Mostly COPD exacerbation and shortness of breath significantly improved and is on oral steroids , blood sugars are under fairly controlled now -Bilateral pedal edema with the possible pulmonary congestion on the chest x-ray I'll cardio and showed normal ejection fraction but appeared to have possible right-sided heart failure or cor pulmonale patient has pulmonary hypertension. Continue with IV Lasix today. -Alkalosis: Secondary to contraction alkalosis from IV diuretics and the most probably from some CO2 retention -Hyponatremia: Hypervolemic hyponatremia , improved with IV Lasix -Lung cancer will need biopsy -Hypertension -hyperlipidemia -Nicotine abuse: Counseling was provided quit smoking 4 days ago and used to s moke 3 packs per day. Type 2 diabetes mellitus: Blood sugars are expected to go because of systemic steroids DVT prophylaxis with Lovenox
[2020-05-04 11:24] LABS: Glucose,Whole Blood 106 mg/dL (75-99)
[2020-05-04] MEDS: FUROSEMIDE 40 MG TAB PO SCH (16:00)
[2020-05-04 17:17] LABS: Glucose,Whole Blood 130 mg/dL (75-99)
[2020-05-04 20:11] LABS: Glucose,Whole Blood 186 mg/dL (75-99)
[2020-05-04] MEDS: ATORVASTATIN 10 MG TAB PO SCH (21:12)
[2020-05-04 23:57] LABS: Hemoglobin A1C 7.4 % (4.0-6.0)
[2020-05-05 07:05] LABS: Glucose,Whole Blood 103 mg/dL (75-99)
[2020-05-05] MEDS: INSULIN ASPART (NovoLOG) 100 UNIT/ML VIAL SQ SCH ×2 (07:24→11:59)
[2020-05-05] MEDS ORDERED: glipiZIDE 5 MG TAB PO SCH (07:30)
[2020-05-05] MEDS: FUROSEMIDE 40 MG TAB PO SCH ×2 (08:49→16:19)
[2020-05-05] MEDS: MELOXICAM 7.5 MG TAB PO SCH ×2 (08:49→08:55)
[2020-05-05] MEDS: lisinopriL 20 MG TAB PO SCH (08:49)
[2020-05-05] MEDS: predniSONE 20 MG TAB PO SCH (08:49)
[2020-05-05] MEDS: PANTOPRAZOLE 40 MG TABLET PO SCH (08:49)
[2020-05-05] MEDS: metFORMIN 500 MG TAB PO SCH (08:49)
[2020-05-05] MEDS: PIOGLITAZONE 30 MG TAB PO SCH (08:50)
--- NOTE | 2020-05-05 09:43 | US ---
EXAMINATION TYPE: US liver DATE OF EXAM: 05/05/2020 COMPARISON: PET scan 04/22/2020 CLINICAL HISTORY: liver mass. Evaluate liver to see if liver biopsy can be done by ultrasound. EXAM MEASUREMENTS: Liver Length: 20.1 cm Gallbladder Wall: Surgically absent CBD: 0.4 cm Right Kidney: 12.4 x 5.2 x 6.4 cm Gross morbid obesity, technically difficult study, limited visualization. Pancreas: Obscured by bowel gas Liver: Increased attenuation, decreased visualization of vessels, limited right lobe visualization Gallbladder: Surgically absent Evidence for sonographic Walker's sign: no CBD: wnl Right Kidney: limited visualization, measures large IMPRESSION: There appear to be small echogenic nodules within the liver with a heterogeneous pattern to the liver. This likely corresponds to the CT abnormality of hepatic nodules.
[2020-05-05 09:56] LABS: African American GFR (CKD) 107.6 (60.0-200.0); Calcium 9.2 mg/dL (8.7-10.3); Chloride 93 mmol/L (96-109); Glucose 96 mg/dL (70-110); Non-African American GFR(CKD) 92.9 (60.0-200.0); Potassium 3.9 mmol/L (3.5-5.5); Sodium 141 mmol/L (135-145)
[2020-05-05 11:04] LABS: Glucose,Whole Blood 120 mg/dL (75-99)
[2020-05-05 11:47] LABS: Carbon Dioxide >40.0 mmol/L (21.6-31.8)
[2020-05-05 12:07] LABS: Carbon Dioxide >40.0 mmol/L (21.6-31.8)
--- NOTE | 2020-05-05 13:16 | CDI ---
Documentation Clarification Form Date: 05/05/2020 01:15:22 PM From: Suzanne ShawEscalanteSEBASTIEN marquez, CCDS Admit Date: 05/02/2020 01:49:00 PM Patient Name: Tucker Vinson V Visit Number: [id number] Discharge Date: ATTENTION: The Clinical Documentation Specialists (CDI) and [facility] Coding Staff appreciate your assistance in clarifying documentation. Please respond to the clarification below the line at the bottom and electronically sign. The CDI & [facility] Coding staff will review the response and follow-up if needed. Please note: Queries are made part of the Legal Health Record. If you have any questions, please contact the author of this message via ITS. Dr. Danelle Rosales: Per the History & Physical and subsequent Attending Progress Notes: "This is a pleasant 60-year-old female came in because she was found to be hypoxic while getting a biopsy of the liver." History/Risk Factors: Recently diagnosed lung cancer with metastatic disease to the liver, COPD, DM, GERD, Back Pain, Hyperlipidemia, Hypertension, Former smoker. Clinical Indicators: Presented to the ED with weakness and SOB. Patient was scheduled for a liver biopsy when she became hypoxic with PO in low 80s. Vital signs: T 99.3, P 85, R 18 (SOB), BP 137/65, PO 91 4Lnc. LAB: D Dimer 0.60^, Cl 92*, CO2 38^ RAD: 05/02 CXR: Borderline cardiomegaly with interstitial/vascular prominence & trace pleural effusions, Correlate for mild CHF. Known 3.3 cm mass in the left midlung correlating to the abnormality on recent outside PET/CT. Treatment: INH Albuterol, INH Atrovent, IV Solumedrol, INH Duoneb, IV Lasix In your professional opinion, can you please clarify if these findings signify one of the following conditions? Acute on Chronic Respiratory Failure Other Diagnosis, please specify Unable to determine If known, further specify (if known): With hypoxia? (Last Query Form Revision: February 2019) Acute Respiratory Failure MTDD
[2020-05-05] MEDS ORDERED: HYDROmorphone 0.5 MG/0.5 ML SYRINGE IVP STA (15:01)
--- NOTE | 2020-05-05 15:14 | US ---
EXAMINATION TYPE: US biopsy liver DATE OF EXAM: 05/05/2020 HISTORY: Liver masses. FINDINGS: Maximal barrier technique was utilized. Hand hygiene achieved with soap and water and alco hol-based hand rub. The skin overlying a suitable path to the patient's mass in left lobe of liver wa s localized with ultrasound and the overlying skin prepped and draped. Ultrasound was utilized with sterile technique. Lidocaine was used for local anesthesia. A skin luis e was made with a scalpel. A n 18-gauge needle was advanced under direct ultrasound guidance and core specimen obtained of the anai sCarmita Ge past was made. Specimen submitted in formalin to Pathology. Following the procedure, hemo stasis achieved and the patient is discharged in stable condition without complication. IMPRESSION:STATUS POST ULTRASOUND GUIDED CORE BIOPSY OF left lobe liver MASS, PATHOLOGY IS PENDING. THIS PROCEDURE IS PERFORMED BY THE UNDERSIGNED.
--- NOTE | 2020-05-05 15:34 | P.DS ---
Providers Date of admission: 05/02/20 13:49 Expected date of discharge: 05/05/20 Attending physician: Danelle Rosales Primary care physician: Rebecca Birmingham [facility] Course: Final diagnosis -Shortness of breath: Mostly COPD exacerbation, with possible acute respiratory failure and hypoxia secondary to COPD exacerbation and recent diagnosis of lung cancer -Bilateral pedal edema with the possible pulmonary congestion on the chest x-ray I'll cardio and showed normal ejection fraction but appeared to have possible right-sided heart failure or cor pulmonale patient has pulmonary hypertension -Alkalosis: Secondary to metabolic alkalosis from IV diuretics and the most probably from some CO2 retention -Hyponatremia: Hypervolemic hyponatremia -Lung cancer will need biopsy -Hypertension -hyperlipidemia -Nicotine abuse -Type 2 diabetes mellitus -DVT prophylaxis Discharge disposition Patient is being discharged in a stable condition with guarded prognosis to home and will continue with home care in the outpatient setting. Patient will follow-up with Dr. Birmingham in the outpatient setting upon discharge. Patient is to continue with oral antibiotics in the form of Augmentin twice daily for the next 5 days along with oral steroids to complete the course. Total time taken is greater than 35 minutes. History of present illness This is a 60-year-old female who was recently admitted with shortness of breath and was found to be hypoxic while awaiting to receive a biopsy of the liver for recent diagnosis of lung cancer with metastasis to the liver. Patient was initiated on steroids along with inhalational treatments and has shown some improvement. She was also having some bilateral pedal edema and initiated on diuretic therapy. Patient is currently maintained on oxygen and becomes severely dyspneic with exertion and may require home oxygen in the outpatient setting. Patient was evaluated and was 89% at rest and 86% with exertion. A prescription was provided for home O2. Case management was consulted to make arrangements for this. Currently no reports of chest pain, worsening shortness of breath, or palpitations. Patient is afebrile. No reports of nausea or vomiting and patient is tolerating diet. Patient anticipating discharge today after the biopsy. On exam vital signs are stable. Temp is 98.2F, pulse is 87, respirations are 20, blood pressure is 148/82, oxygen saturation is 96% on 2 L of oxygen via nasal cannula. Cardio S1, S2 are muffled. Respiratory system shows diminished breath sounds at the bases with no wheezing or rhonchi noted. Abdomen is soft and obese, and nontender. Nervous system shows no focal deficits. Please refer to medication reconciliation sheet for a list of medications. Patient Condition at Discharge: Stable Plan - Discharge Summary New Discharge Prescriptions: New Ipratropium-Albuterol Nebulize [Duoneb 0.5 mg-3 mg/3 ml Soln] 3 ml INHALATION RT-Q4H PRN 30 Days #90 ml PRN Reason: Shortness Of Breath Or Wheezing glipiZIDE [Glucotrol] 5 mg PO AC-BRKFST #30 tab Furosemide [Lasix] 40 mg PO BID@0900,1600 30 Days #60 tab predniSONE 10 mg PO DIRECTED #10 tab Continue Albuterol Inhaler [Ventolin Hfa Inhaler] 1 puff INHALATION RT-TID Cholecalciferol [Vitamin D3 (25 Mcg = 1000 Iu)] 1,000 unit PO DAILY Potassium Gluconate 99 mg PO DAILY metFORMIN HCL 1,000 mg PO BID Vitamin B Complex/Folic Acid [Vitamin B Complex Tablet] 0.4 mg PO DAILY Pioglitazone [Actos] 30 mg PO DAILY Omeprazole 20 mg PO BID Simvastatin [Zocor] 20 mg PO HS Aspirin [Adult Low Dose Aspirin EC] 81 mg PO HS Enalapril [Vasotec] 10 mg PO BID Fluticasone Nasal Coleman [Flonase Nasal Coleman] 1 spr EA NOSTRIL DAILY PRN PRN Reason: Congestion Meloxicam [Mobic] 15 mg PO DAILY Discontinued glipiZIDE XL [Glucotrol XL] 10 mg PO DAILY Albuterol Nebulized [Ventolin Nebulized] 2.5 mg INHALATION RT-QID hydroCHLOROthiazide 25 mg PO DAILY Discharge Medication List Albuterol Inhaler [Ventolin Hfa Inhaler] 1 puff INHALATION RT-TID 04/25/20 [History] Aspirin [Adult Low Dose Aspirin EC] 81 mg PO HS 04/25/20 [History] Cholecalciferol [Vitamin D3 (25 Mcg = 1000 Iu)] 1,000 unit PO DAILY 04/25/20 [History] Omeprazole 20 mg PO BID 04/25/20 [History] Pioglitazone [Actos] 30 mg PO DAILY 04/25/20 [History] Potassium Gluconate 99 mg PO DAILY 04/25/20 [History] Simvastatin [Zocor] 20 mg PO HS 04/25/20 [History] Vitamin B Complex/Folic Acid [Vitamin B Complex Tablet] 0.4 mg PO DAILY 04/25/20 [History] metFORMIN HCL 1,000 mg PO BID 04/25/20 [History] Enalapril [Vasotec] 10 mg PO BID 05/02/20 [History] Fluticasone Nasal Coleman [Flonase Nasal Coleman] 1 spr EA NOSTRIL DAILY PRN 05/02/20 [History] Meloxicam [Mobic] 15 mg PO DAILY 05/02/20 [History] Furosemide [Lasix] 40 mg PO BID@0900,1600 30 Days #60 tab 05/05/20 [Rx] Ipratropium-Albuterol Nebulize [Duoneb 0.5 mg-3 mg/3 ml Soln] 3 ml INHALATION RT-Q4H PRN 30 Days #90 ml 05/05/20 [Rx] glipiZIDE [Glucotrol] 5 mg PO AC-BRKFST #30 tab 05/05/20 [Rx] predniSONE 10 mg PO DIRECTED #10 tab 05/05/20 [Rx] Follow up Appointment(s)/Referral(s): Rebecca Birmingham MD [Primary Care Provider] - 05/12/20 10:15 am Patient Instructions/Handouts: Pulmonary Edema (DC), Lung Cancer (GEN), Type 2 Diabetes in Adults: New Diagnosis (DC) Activity/Diet/Wound Care/Special Instructions: Discharge Status post biopsy Activity Limited until follow-up Follow-up with primary care provider upon discharge Continue to monitor blood sugars and keep a diary for primary care follow-up Continue with steroids until finished Discontinue Glucotrol once steroids are finished pt will be sent home with home o2 s/t hypoxia because of dx of COPD. pt will be sent home with duoneb 0.5mg every 4hrs [employer] -[phone] Discharge Disposition: HOME SELF-CARE
[2020-05-05 17:39] LABS: Glucose,Whole Blood 236 mg/dL (75-99)
[2020-05-05 18:52] VITALS: RESP 18; TEMP 98.2
[2020-05-05 18:57] VITALS: BP 97/62; PULSE 81
== END 2020-05-05 18:30 | disposition home or self-care (01) | DRG 190 ==
LOC: EC 09:46 → 6NMEDSUR 13:49
PROVIDERS: ADMIT Internal Medicine; ATTEND Internal Medicine
PROC: 0FB23ZX Excision of Left Lobe Liver, Percutaneous Approach, Diagnostic (ICD-10-PCS; principal; 2020-05-05)
DX: J44.1 Chronic obstructive pulmonary disease with (acute) exacerbation (principal); J96.01 Acute respiratory failure with hypoxia; C78.7 Secondary malignant neoplasm of liver and intrahepatic bile duct; C34.90 Malignant neoplasm of unspecified part of unspecified bronchus or lung; E87.1 Hypo-osmolality and hyponatremia; E87.3 Alkalosis; Z68.43 Body mass index [BMI] 50.0-59.9, adult; J81.1 Chronic pulmonary edema; E11.9 Type 2 diabetes mellitus without complications; I27.20 Pulmonary hypertension, unspecified; E87.70 Fluid overload, unspecified; Z20.828 Contact with and (suspected) exposure to other viral communicable diseases; E66.9 Obesity, unspecified; E78.5 Hyperlipidemia, unspecified; I10 Essential (primary) hypertension; K21.9 Gastro-esophageal reflux disease without esophagitis; M54.9 Dorsalgia, unspecified; Z90.49 Acquired absence of other specified parts of digestive tract; Z88.8 Allergy status to other drugs, medicaments and biological substances; Z88.5 Allergy status to narcotic agent; Z91.013 Allergy to seafood; Z79.899 Other long term (current) drug therapy; Z79.82 Long term (current) use of aspirin; Z79.84 Long term (current) use of oral hypoglycemic drugs; Z79.1 Long term (current) use of non-steroidal anti-inflammatories (NSAID); Z87.891 Personal history of nicotine dependence; Z85.05 Personal history of malignant neoplasm of liver; Z85.118 Personal history of other malignant neoplasm of bronchus and lung; Z90.89 Acquired absence of other organs; Z98.890 Other specified postprocedural states; Z81.8 Family history of other mental and behavioral disorders
CPT/HCPCS: 36415; 47000; 71046; 76705; 76942; 80048; 80053; 81001; 83036; 83605; 83735; 83880; 84484; 85025; 85027; 85379; 85610; 85730; 87040; 87635; 93005; 93306; 94640; 96374; 96375; 96376; 99291

== ENCOUNTER → 2020-07-14 | Outpatient (CLI) | payer MEDICARE ==
--- NOTE | 2020-07-15 11:49 | MR ---
EXAMINATION TYPE: MR brain wo/w con DATE OF EXAM: 07/14/2020 COMPARISON: Outside MRI brain May 10, 2020. HISTORY: History of stage IV lung cancer. TECHNIQUE: Multiplanar, multisequence images of the brain and brainstem is performed without and with IV contras t, utilizing 13.5 mL intravenous Gadavist . FINDINGS: Diffusion weighted images demonstrate no evidence of a recent infarct or other diffusion ab normality. Mild diffuse ventricular and sulcal prominence is redemonstrated. Occasional scattered tin y foci of T2 hyperintensity is seen throughout the white matter bilaterally. Midline structures demonstrate normal morphology. The craniocervical junction shows stable slightly low lying cerebellar tonsils but not greater than 5 mm inferior displacement. Post contrast images d emonstrate no definitive new abnormal enhancing mass. Single T2 hyperintense lesion high right pariet al lobe measures 7 mm current study diminished in size from prior on axial image 54, there is some ri m-type enhancement seen on postcontrast images. Some wraparound artifact degradation is noted similar to prior. The dural venous sinuses appear patent. The visualized sinuses are clear and the globes ar e intact. IMPRESSION: Mild age-related cerebral atrophy and chronic small vessel ischemic change redemonstrated . Rim-enhancing metastatic lesion right parietal lobe decrease in size from prior outside MRI. No new metastatic disease noted.
== END | disposition home or self-care (01) ==
LOC: RADMRIMAIN 14:38
PROVIDERS: ATTEND Radiology Radiation Oncology
DX: I67.82 Cerebral ischemia (principal); G31.1 Senile degeneration of brain, not elsewhere classified; C79.31 Secondary malignant neoplasm of brain
CPT/HCPCS: 70553; A9585

== ENCOUNTER → 2020-09-29 | Outpatient (CLI) | payer MEDICARE ==
--- NOTE | 2020-09-29 15:29 | MR ---
EXAMINATION TYPE: MR brain wo/w con DATE OF EXAM: 09/29/2020 COMPARISON: Most recent MRI brain July 14, 2020. HISTORY: Secondary malignant neoplasm brain, stage IV lung cancer. TECHNIQUE: Multiplanar, multisequence images of the brain and brainstem is performed without and with IV contras t, utilizing 13.5 mL intravenous Gadavist . FINDINGS: The ventricular system and cisternal spaces remain normal in size and appearance. The brai n volume is age appropriate. Midline structures redemonstrate normal morphology. The craniocervical junction remain within normal limits. Residual 4 mm T2 hyperintense lesion high right parietal lobe axial image 53 without abnormal postcon trast enhancement on current study. Additional occasional scattered T2 hyperintense lesions throughou t the brain parenchyma. Some appear new from prior study for reference two basal ganglia lesions axia l image 38. There are roughly 4 new lesions right head of caudate nucleus and basal ganglia. These ar eas show increased signal on diffusion-weighted images with some areas showing diminished signal ADC mapping. There is also new 9 x 7 x 10 mm axial image 34, sagittal image 39, and coronal image 28 in the superi or left cerebellum deep aspect. Some surrounding vasogenic edema noted. The dural venous sinuses remain patent. The visualized sinuses are clear and the globes are intact. IMPRESSION: New 10 mm metastatic focus deep high cerebellum just left of midline. Mild nonspecific wh ite matter changes with interval progression. Multifocal areas of acute/subacute lacunar infarct susp ected. Follow-up advised.
== END | disposition home or self-care (01) ==
LOC: RADMRIMAIN 11:36
PROVIDERS: ATTEND Radiology Radiation Oncology
DX: C79.31 Secondary malignant neoplasm of brain (principal); C34.90 Malignant neoplasm of unspecified part of unspecified bronchus or lung; R90.82 White matter disease, unspecified
CPT/HCPCS: 70553; A9585

== ENCOUNTER → 2020-12-19 | Outpatient (CLI) | payer MEDICARE ==
--- NOTE | 2020-12-20 06:44 | MR ---
EXAMINATION TYPE: MR brain wo/w con DATE OF EXAM: 12/19/2020 COMPARISON: 09/29/2020 HISTORY: Secondary malignant neoplasm of the brain CONTRAST: Standard multiplanar, multisequence MRI departmental protocol utilizing 13 mL intravenous Gadavist ga dolinium contrast. On the T2 and FLAIR images there are numerous variable sized foci of abnormal signal in both cerebral hemispheres. There is also involvement of the cerebellum. There is 8mm focus in the right side of th e halina. These lesions measure up to 16 mm. There is no significant pathologic enhancement. There is n ormal enhancement of the venous sinuses. The majority of these lesions are peripheral near the cortex or at the glover-white matter junction. IMPRESSION: Numerous lesions in the brain as above consistent with metastatic disease. These appear increased in size and number compared to 09/29/2020 and consistent with progression of metastatic disease. There ar e significantly more lesions and increased size of the lesions. These lesions do not show much pathol ogic enhancement.
== END | disposition home or self-care (01) ==
LOC: RADMRIMAIN 11:32
PROVIDERS: ATTEND Radiology Radiation Oncology
DX: C79.31 Secondary malignant neoplasm of brain (principal); C80.1 Malignant (primary) neoplasm, unspecified
CPT/HCPCS: 70553; A9585

== ENCOUNTER 2020-12-30 12:32 | Emergency (ER) | payer MEDICARE ==
[2020-12-30] MEDS ORDERED: ONDANSETRON 4 MG/2 ML VIAL IVP STA (12:55)
[2020-12-30] MEDS ORDERED: FAMOTIDINE 20 MG/2 ML VIAL IV STA (12:55)
[2020-12-30] MEDS ORDERED: SODIUM CHLORIDE 0.9% 1,000 ML IV STA (12:55)
--- NOTE | 2020-12-30 13:03 | ED ---
General Adult HPI - General Chief complaint: Nausea/Vomiting/Diarrhea Stated complaint: vomiting Time Seen by Provider: 12/30/20 12:46 Source: patient, family, RN notes reviewed Mode of arrival: wheelchair Limitations: no limitations - History of Present Illness Initial comments: Patient is a pleasant [age]-year-old female presenting to the emergency [facility] with complaints of nausea and vomiting. Onset of symptoms was approximately for 5 days ago. Symptoms worsened since getting her last chemotherapy treatment. Dose was changed recently on the previous dose. Patient is vomiting. 4 times daily. Decreased oral intake. No abdominal pain. No fever. No constipation or diarrhea. - Related Data Home Medications Medication Instructions Recorded Confirmed Albuterol Inhaler [Ventolin Hfa 1 - 2 puff INHALATION RT-QID PRN 04/25/20 12/30/20 Inhaler] Omeprazole 20 mg PO BID 04/25/20 12/30/20 Pioglitazone [Actos] 30 mg PO DAILY 04/25/20 12/30/20 Potassium Gluconate 99 mg PO DAILY 04/25/20 12/30/20 metFORMIN HCL 1,000 mg PO BID 04/25/20 12/30/20 Enalapril [Vasotec] 5 mg PO BID 05/02/20 12/30/20 CARBOplatin [Paraplatin] 1 dose IV WE 12/30/20 12/30/20 Cholecalciferol [Vitamin D3 (25 25 mcg PO DAILY 12/30/20 12/30/20 Mcg = 1000 Iu)] HYDROcodone/APAP 5-325MG [Dougherty 2 tab PO Q6H PRN 12/30/20 12/30/20 5-325] Insulin Glargine [Lantus] 126 unit SQ DAILY 12/30/20 12/30/20 Prochlorperazine [Compazine] 10 mg PO Q6H PRN 12/30/20 12/30/20 Previous Rx's Medication Instructions Recorded Furosemide [Lasix] 40 mg PO BID@0900,1600 30 Days #60 05/05/20 tab Ipratropium-Albuterol Nebulize 3 ml INHALATION RT-Q4H PRN 30 Days 05/05/20 [Duoneb 0.5 mg-3 mg/3 ml Soln] #90 ml glipiZIDE [Glucotrol] 5 mg PO AC-BRKFST #30 tab 05/05/20 Allergies Allergy/AdvReac Type Severity Reaction Status Date / Time codeine Allergy Rash/Hives Verified 12/30/20 13:14 Iodine and Iodide Containing Allergy Rash/Hives Verified 12/30/20 13:14 Produc shellfish derived [Shellfish] Allergy Rash/Hives Verified 12/30/20 13:14 Review of Systems ROS Statement: Those systems with pertinent positive or pertinent negative responses have been documented in the HPI. ROS Other: All systems not noted in ROS Statement are negative. Constitutional: Denies: fever Eyes: Denies: eye pain ENT: Denies: ear pain Respiratory: Denies: cough Cardiovascular: Denies: chest pain Endocrine: Denies: fatigue Gastrointestinal: Reports: vomiting. Denies: abdominal pain Genitourinary: Denies: dysuria Musculoskeletal: Denies: back pain Skin: Denies: rash Neurological: Denies: weakness Past Medical History Past Medical History: Cancer, COPD, Diabetes Mellitus, GERD/Reflux, Hyperlipidemia, Hypertension Additional Past Medical History / Comment(s): back pain, Liver CA History of Any Multi-Drug Resistant Organisms: None Reported Past Surgical History: Adenoidectomy, Cholecystectomy, Joint Replacement, Orthopedic Surgery, Tonsillectomy Additional Past Surgical History / Comment(s): cyst removal in navel area Past Anesthesia/Blood Transfusion Reactions: Postoperative Nausea & Vomiting (PONV) Past Psychological History: No Psychological Hx Reported Smoking Status: Former smoker Past Alcohol Use History: Rare Past Drug Use History: None Reported - Past Family History Mother Brother(s) Additional Family Medical History / Comment(s): parkinson General Exam Limitations: no limitations General appearance: alert, in no apparent distress Head exam: Present: normocephalic Eye exam: Present: normal appearance Neck exam: Present: normal inspection Respiratory exam: Present: normal lung sounds bilaterally Cardiovascular Exam: Present: regular rate, normal rhythm GI/Abdominal exam: Present: soft. Absent: tenderness Extremities exam: Present: normal inspection. Absent: pedal edema, calf tenderness Neurological exam: Present: alert Psychiatric exam: Present: normal affect, normal mood Skin exam: Present: normal color Course Vital Signs 12/30/20 12:41 Temperature 98.2 F Pulse Rate 96 Respiratory 16 Rate Blood Pressure 127/78 O2 Sat by Pulse 94 L Oximetry Medical Decision Making - Medical Decision Making Patient reevaluated and feeling better following IV fluids and medication. Patient is requesting discharge home. Patient and family updated on results and need for follow-up. Dr. Cheung has been paged. - Lab Data Result diagrams: 12/30/20 13:16 12/30/20 13:16 Lab Results 12/30/20 12/30/20 Range/Units 13:16 13:16 WBC 3.2 L (3.8-10.6) k/uL RBC 4.06 (3.80-5.40) m/uL Hgb 14.4 (11.4-16.0) gm/dL Hct 39.3 (34.0-46.0) % MCV 96.7 (80.0-100.0) fL MCH 35.3 H (25.0-35.0) pg MCHC 36.5 (31.0-37.0) g/dL RDW 16.9 H (11.5-15.5) % MPV 8.2 Anisocytosis Slight Sodium 137 (137-145) mmol/L Potassium 3.1 L (3.5-5.1) mmol/L Chloride 96 L (98-107) mmol/L Carbon Dioxide 32 H (22-30) mmol/L Anion Gap 9 mmol/L BUN 11 (7-17) mg/dL Creatinine 0.46 L (0.52-1.04) mg/dL Est GFR (CKD-EPI)AfAm >90 (>60 ml/min/1.73 sqM) Est GFR (CKD-EPI)NonAf >90 (>60 ml/min/1.73 sqM) Glucose 213 H (74-99) mg/dL Calcium 9.5 (8.4-10.2) mg/dL Total Bilirubin 1.6 H (0.2-1.3) mg/dL AST 94 H (14-36) U/L ALT 88 H (4-34) U/L Alkaline Phosphatase 229 H (38-126) U/L Total Protein 6.0 L (6.3-8.2) g/dL Albumin 3.8 (3.5-5.0) g/dL Amylase 39 (30-110) U/L Lipase 58 (23-300) U/L Disposition Clinical Impression: Vomiting Disposition: HOME SELF-CARE Condition: Stable Instructions (If sedation given, give patient instructions): Acute Nausea and Vomiting (ED) Additional Instructions: Please follow-up with your oncologist and primary care physician in the next day or 2 for recheck. Return for increased vomiting, weakness, worsening or change in symptoms or other concerns. Is patient prescribed a controlled substance at d/c from ED?: No Referrals: Rebecca Birmingham MD [Primary Care Provider] - 1-2 days Time of Disposition: 14:34
[2020-12-30 13:50] LABS: Anisocytosis Slight; Basophils % (A) 0 %; Eosinophils # (A) 0.1 k/uL (0-0.7); Eosinophils % (A) 3 %; HCT 39.3 % (34.0-46.0); HGB 14.4 gm/dL (11.4-16.0); Lymphocytes # (A) 0.9 k/uL (1.0-4.8); Lymphocytes % (A) 26 %; MCH 35.3 pg (25.0-35.0); MCHC 36.5 g/dL (31.0-37.0); MCV 96.7 fL (80.0-100.0); Mean Platelet Volume 8.2; Monocytes # (A) 0.1 k/uL (0-1.0); Monocytes % (A) 5 %; Neutrophils % (A) 63 %; RBC 4.06 m/uL (3.80-5.40); RDW 16.9 % (11.5-15.5); WBC 3.2 k/uL (3.8-10.6)
[2020-12-30 14:16] LABS: ALT 88 U/L (4-34); AST 94 U/L (14-36); African American GFR (CKD) >90 (>60 ml/min/1.73 sqM); Albumin 3.8 g/dL (3.5-5.0); Alkaline Phosphatase 229 U/L (38-126); Amylase 39 U/L (30-110); Anion Gap 9 mmol/L; Blood Urea Nitrogen 11 mg/dL (7-17); Calcium 9.5 mg/dL (8.4-10.2); Carbon Dioxide 32 mmol/L (22-30); Chloride 96 mmol/L (98-107); Glucose 213 mg/dL (74-99); Lipase 58 U/L (23-300); Non-African American GFR(CKD) >90 (>60 ml/min/1.73 sqM); Potassium 3.1 mmol/L (3.5-5.1); Sodium 137 mmol/L (137-145); Total Bilirubin 1.6 mg/dL (0.2-1.3)
[2020-12-30] MEDS ORDERED: POTASSIUM CHLORIDE 20 MEQ in WATER FOR INJECTION 1 100ML.BAG IVPB ONE (14:35)
[2020-12-30 14:38] LABS: Platelet Count 97 k/uL (150-450)
[2020-12-30 16:40] VITALS: BP 142/79; PULSE 92; RESP 18; TEMP 97.6
== END 2020-12-30 16:40 | disposition home or self-care (01) ==
LOC: EC 12:32
DX: R11.10 Vomiting, unspecified (principal); I10 Essential (primary) hypertension; J44.9 Chronic obstructive pulmonary disease, unspecified; E11.9 Type 2 diabetes mellitus without complications; E78.5 Hyperlipidemia, unspecified; K21.9 Gastro-esophageal reflux disease without esophagitis; Z79.4 Long term (current) use of insulin; Z87.891 Personal history of nicotine dependence; Z79.51 Long term (current) use of inhaled steroids; Z88.8 Allergy status to other drugs, medicaments and biological substances
CPT/HCPCS: 36415; 80053; 82150; 83690; 85025; 99284; 96365; 96366; 96375 ×2; 96361; J3480; J2405